=== PATIENT | male | born 1990 | race Caucasian/White ===

== ENCOUNTER 2021-04-05 13:35 | Outpatient (CLI) | payer MEDICAID | END 2021-04-05 13:36 | disposition critical access hospital (66) | LOC: EMS 13:35 | DX: R40.4 Transient alteration of awareness (principal); R25.1 Tremor, unspecified | CPT/HCPCS: A0425; A0427; A0999 ==

== ENCOUNTER 2021-04-05 13:55 | Emergency (ER) | payer MEDICAID ==
[2021-04-05] MEDS ORDERED: SODIUM CHLORIDE 0.9% 1,000 ML IV STA (14:25)
[2021-04-05] MEDS ORDERED: ONDANSETRON 4 MG/2 ML VIAL IVP STA (14:25)
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
[2021-04-05 15:14] LABS: BASOPHILS % (AUTO) 0.3 %; EOSINOPHILS % (AUTO) 0.2 %; HCT - HEMATOCRIT 44.1 % (42.0-52.0); HGB - HEMOGLOBIN 14.7 g/dL (14.0-18.0); LYMPHOCYTES # (AUTO) 3.3 10^3/uL (1.5-3.5); LYMPHOCYTES % (AUTO) 35.7 %; MEAN CORPUSCULAR HEMOGLOBIN 30.2 pg (27.0-31.0); MEAN CORPUSCULAR HGB CONC 33.3 g/dL (32.0-36.0); MEAN CORPUSCULAR VOLUME 90.7 fL (80.0-94.0); MEAN PLATELET VOLUME 8.8 fL (7.4-11.4); MONOCYTES # (AUTO) 0.3 10^3/uL (0.0-1.0); MONOCYTES % (AUTO) 3.6 %; NEUTROPHILS # (AUTO) 5.5 10^3/uL (1.5-6.6); NEUTROPHILS % (AUTO) 59.9 %; PLT - PLATELET COUNT 407 10^3/uL (130-450); RED BLOOD COUNT 4.86 10^6/uL (4.70-6.10); RED CELL DISTRIBUTION WIDTH 13.5 % (12.0-15.0); WHITE BLOOD COUNT 9.2 x10^3/uL (4.8-10.8)
[2021-04-05 15:27] LABS: ALBUMIN 4.9 g/dL (3.2-5.5); ALBUMIN/GLOBULIN RATIO 1.6 (1.0-2.2); BILIRUBIN,TOTAL 0.4 mg/dL (0.2-1.0); CALCIUM 9.3 mg/dL (8.5-10.3); CREATININE 0.8 mg/dL (0.6-1.2); ETOH - ETHANOL 260.1 mg/dL; POTASSIUM 3.6 mmol/L (3.5-5.0); TOTAL PROTEIN 7.9 g/dL (6.7-8.2)
[2021-04-05 17:10] VITALS: BP 111/64
== END 2021-04-05 18:03 | disposition home or self-care (01) ==
LOC: ED 13:55
DX: F10.129 Alcohol abuse with intoxication, unspecified (principal); Y90.8 Blood alcohol level of 240 mg/100 ml or more; R56.9 Unspecified convulsions
CPT/HCPCS: 36415; 80053; 80320; 83690; 85025; 96361; 96374; 99284

== ENCOUNTER 2021-04-06 02:36 | Outpatient (CLI) | payer MEDICAID | END 2021-04-06 02:37 | disposition critical access hospital (66) | LOC: EMS 02:36 | DX: Z76.89 Persons encountering health services in other specified circumstances (principal); R44.8 Other symptoms and signs involving general sensations and perceptions | CPT/HCPCS: A0425; A0427; A0999 ==

== ENCOUNTER 2021-04-06 02:50 | Emergency (ER) | payer MEDICAID ==
[2021-04-06] MEDS ORDERED: LORazepam 2 MG/ML VIAL IVP STA ×2 (03:02→03:58)
[2021-04-06] MEDS ORDERED: FOLIC ACID INJ 1 MG, THIAMINE INJ 100 MG, MAGNESIUM SULFATE 2 GM, MULTIVITAMIN 10 ML in... IV STA ×5 (03:02)
--- NOTE | 2021-04-06 03:10 | ED Physician Documentation ---
History of Present Illness - Stated complaint Stated Complaint: ETOH, THINKS HE'S GOING TO HAVE A SEIZURE - Chief complaint Chief Complaint: General - History obtained from History obtained from: Patient, EMS - History of Present Illness Timing: Prior to arrival, Today - Additonal information Additional information: 31-year-old male with a history of PTSD and alcohol abuse tells me today that he has been drinking for the past 16 days. He indicates that he went to [facility] after being seen at [facility] yesterday and when he was at [facility] this morning when they noted seizure-like activity and sent him here to the emergency department for evaluation. Here in the emergency department his blood alcohol was 270, he was given a liter of saline and 4mg of zofran and he had resolution of his symptoms. He indicates that he has a feeling like he is going to have a seizure and he had someone call 911 for him. He lives in [facility], has a history of PTSD and he has a friend that He served in [facility] [facility] with who was part of his PTSD support group who has committed suicide. He states this is a reason for his slip again to binge drinking. He states that he last binged drank about 5 or 6 months ago had a similar problem with withdrawal at that time. On evaluation of his CANDELARIO form it appears the has significant alcohol problems with alcohol intoxication and abuse including emergency department visits and inpatient treatment. He has told Dr. Silva earlier today that he drinks beer and he tells me he has vodka and wiskey about 1/5 per day. He has multiple scripts for ativan on his CANDELARIO. He has been out of ativan and seeking detox from alcohol. He went back to [facility] Review of Systems Unable to obtain: Intoxicated Constitutional: denies: Fever Eyes: denies: Decreased vision Ears: denies: Ear pain Nose: denies: Congestion Cardiac: denies: Chest pain / pressure Respiratory: denies: Dyspnea, Cough GI: reports: Abdominal Pain, Nausea, Vomiting : denies: Dysuria, Frequency Skin: denies: Rash Musculoskeletal: reports: Pain with weight bearing, Other (generalized pain/pins and needles) Neurologic: reports: Seizure, Confused Psychiatric: reports: Depressed. denies: Suicidal PD PAST MEDICAL HISTORY - Present Medications Home Medications: Ambulatory Orders Medication Instructions Recorded Confirmed No Known Home Medications 04/06/21 04/06/21 - Allergies Allergies/Adverse Reactions: Allergies Allergy/AdvReac Type Severity Reaction Status Date / Time No Known Drug Allergies Allergy Verified 04/06/21 03:02 PD ED PE NORMAL - Vitals Vital signs reviewed: Yes - General General: Alert and oriented X 3, Well developed/nourished, Other (shaky appearing male with aob) - HEENT HEENT: Atraumatic, PERRL, EOMI - Neck Neck: Supple, no meningeal sign, No bony TTP - Cardiac Cardiac: No murmur, Other (tachy to110) - Respiratory Respiratory: No respiratory distress, Clear bilaterally - Abdomen Abdomen: Normal bowel sounds, Soft, Non tender, Non distended, No organomegaly - Back Back: No CVA TTP, No spinal TTP - Derm Derm: Normal color, Warm and dry, No rash - Extremities Extremities: No deformity, No edema - Neuro 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 ) Results - Vitals Vitals: Vital Signs - 24 hr 04/06/21 04/06/21 04/06/21 02:50 03:14 03:25 Temperature 37.1 C Heart Rate 117 H 111 H 116 H Respiratory 18 21 23 Rate Blood Pressure 160/87 H 139/76 H 139/76 H O2 Saturation 95 96 95 04/06/21 04/06/21 04/06/21 03:39 03:52 04:17 Temperature 36.4 C L 36.9 C Heart Rate 120 H 114 H 106 H Respiratory 20 21 19 Rate Blood Pressure 134/74 H 134/74 H 113/54 L O2 Saturation 96 95 94 04/06/21 04/06/21 04/06/21 04:30 05:34 06:00 Temperature Heart Rate 107 H 111 H 97 Respiratory 19 18 16 Rate Blood Pressure 118/55 L 124/70 125/56 L O2 Saturation 94 95 95 04/06/21 06:51 Temperature 36.3 C L Heart Rate 92 Respiratory 15 Rate Blood Pressure 124/61 O2 Saturation 95 Oxygen O2 Source Room air - Labs Labs: Laboratory Tests 04/06/21 04/06/21 04/06/21 03:08 03:08 03:18 WBC 9.3 RBC 4.45 L Hgb 13.6 L Hct 40.7 L MCV 91.5 MCH 30.6 MCHC 33.4 RDW 13.7 Plt Count 390 MPV 8.8 Neut # (Auto) 4.1 Lymph # (Auto) 4.5 H [place] # (Auto) 0.5 Eos # (Auto) 0.2 Baso # (Auto) 0.1 Absolute Nucleated RBC 0.00 Nucleated RBC % 0.0 Sodium 145 Potassium 3.9 Chloride 103 Carbon Dioxide 27 Anion Gap 15.0 H BUN 16 Creatinine 1.0 Estimated GFR (MDRD) 87 L Glucose 102 H Calcium 8.7 Total Bilirubin 0.4 AST 27 ALT 21 Alkaline Phosphatase 64 Total Protein 7.3 Albumin 4.4 Globulin 2.9 Albumin/Globulin Ratio 1.5 Lipase 32 Urine Color YELLOW Urine Clarity CLEAR Urine pH 5.5 Ur Specific Dwight >=1.030 H Urine Protein NEGATIVE Urine Glucose (UA) NEGATIVE Urine Ketones NEGATIVE Urine Occult Blood NEGATIVE Urine Nitrite NEGATIVE Urine Bilirubin NEGATIVE Urine Urobilinogen 0.2 (NORMAL) Ur Leukocyte Esterase NEGATIVE Ur Microscopic Review NOT INDICATED Urine Culture Comments NOT INDICATED Urine Opiates Screen Ur Oxycodone Screen Urine Methadone Screen Ur Propoxyphene Screen Ur Barbiturates Screen Ur Tricyclics Screen Ur Phencyclidine Scrn Ur Amphetamine Screen U Methamphetamines Scrn U Benzodiazepines Scrn Urine Cocaine Screen U Cannabinoids Screen Ethyl Alcohol 223.2 04/06/21 03:18 WBC RBC Hgb Hct MCV MCH MCHC RDW Plt Count MPV Neut # (Auto) Lymph # (Auto) [place] # (Auto) Eos # (Auto) Baso # (Auto) Absolute Nucleated RBC Nucleated RBC % Sodium Potassium Chloride Carbon Dioxide Anion Gap BUN Creatinine Estimated GFR (MDRD) Glucose Calcium Total Bilirubin AST ALT Alkaline Phosphatase Total Protein Albumin Globulin Albumin/Globulin Ratio Lipase Urine Color Urine Clarity Urine pH Ur Specific [place] Urine Protein Urine Glucose (UA) Urine Ketones Urine Occult Blood Urine Nitrite Urine Bilirubin Urine Urobilinogen Ur Leukocyte Esterase Ur Microscopic Review Urine Culture Comments Urine Opiates Screen NEGATIVE Ur Oxycodone Screen NEGATIVE Urine Methadone Screen NEGATIVE Ur Propoxyphene Screen NEGATIVE Ur Barbiturates Screen NEGATIVE Ur Tricyclics Screen NEGATIVE Ur Phencyclidine Scrn NEGATIVE Ur Amphetamine Screen NEGATIVE U Methamphetamines Scrn NEGATIVE U Benzodiazepines Scrn POSITIVE H Urine Cocaine Screen NEGATIVE U Cannabinoids Screen NEGATIVE Ethyl Alcohol PD MEDICAL DECISION MAKING - ED course Complexity details: reviewed old records, reviewed results, re-evaluated patient, considered differential, d/w patient ED course: 31-year-old male with a history of PTSD and alcohol abuse presents to the emergency department intoxicated complaining of alcohol withdrawal. He is quite shaky. He requires 2 mg of Ativan and this does not entirely resolve his symptoms and he asked for more. He was administered a banana bag and 10 mg of dexamethasone. He requested medicine for pain and I denied this to him. I was able to review records from a recent hospitalization at [facility] and the indication there is long-term problems with binge drinking and benzodiazepines. The patient's father had requested detainment under Moody's law. The patient is voluntary here today. I am uncertain what we would treat here in the emergency department or in the hospital as a patient is intoxicated and thinks he is having alcohol withdrawal. My concern is for benzodiazepine withdrawal and I am uncertain that hospitalization here would be of benefit. After review of the patient's record from [facility] it appears there is concern to evoke Moody's law. I have asked our social work job titles to consider a dual diagnosis bed and at shift change his care is turned over to Dr. Vance. Departure - Departure Clinical Impression: Alcohol abuse, PTSD (post-traumatic stress disorder) Acute alcohol intoxication Qualifiers: Complication of substance-induced condition: with unspecified complication Qualified Code(s): F10.929 - Alcohol use, unspecified with intoxication, unspecified
[2021-04-06 03:14] LABS: BASOPHILS # (AUTO) 0.1 10^3/uL (0.0-0.1); BASOPHILS % (AUTO) 0.5 %; EOSINOPHILS # (AUTO) 0.2 10^3/uL (0.0-0.7); EOSINOPHILS % (AUTO) 1.7 %; HCT - HEMATOCRIT 40.7 % (42.0-52.0); HGB - HEMOGLOBIN 13.6 g/dL (14.0-18.0); LYMPHOCYTES # (AUTO) 4.5 10^3/uL (1.5-3.5); LYMPHOCYTES % (AUTO) 48.4 %; MEAN CORPUSCULAR HEMOGLOBIN 30.6 pg (27.0-31.0); MEAN CORPUSCULAR HGB CONC 33.4 g/dL (32.0-36.0); MEAN CORPUSCULAR VOLUME 91.5 fL (80.0-94.0); MEAN PLATELET VOLUME 8.8 fL (7.4-11.4); MONOCYTES # (AUTO) 0.5 10^3/uL (0.0-1.0); MONOCYTES % (AUTO) 4.8 %; NEUTROPHILS # (AUTO) 4.1 10^3/uL (1.5-6.6); NEUTROPHILS % (AUTO) 44.3 %; PLT - PLATELET COUNT 390 10^3/uL (130-450); RED BLOOD COUNT 4.45 10^6/uL (4.70-6.10); RED CELL DISTRIBUTION WIDTH 13.7 % (12.0-15.0); WHITE BLOOD COUNT 9.3 x10^3/uL (4.8-10.8)
[2021-04-06] MEDS ORDERED: MAGNESIUM SULFATE 1 GM/2 ML VIAL ONE (03:14)
[2021-04-06] MEDS ORDERED: THIAMINE 100 MG/1 ML 2 ML MDV ONE (03:14)
[2021-04-06 03:24] LABS: BILIRUBIN,URINE NEGATIVE (NEGATIVE); GLUCOSE, URINE (UA) NEGATIVE (NEGATIVE); KETONES,URINE (UA) NEGATIVE (NEGATIVE); LEUKOCYTE ESTERASE, URINE NEGATIVE (NEGATIVE); NITRITE,URINE NEGATIVE (NEGATIVE); OCCULT BLOOD,URINE NEGATIVE (NEGATIVE); PH,URINE 5.5 PH (5.0-7.5); PROTEIN,URINE NEGATIVE (NEGATIVE); UROBILINOGEN,URINE 0.2 (NORMAL) E.U./dL (NORMAL)
[2021-04-06 03:25] LABS: CLARITY,URINE CLEAR (CLEAR)
[2021-04-06 03:29] LABS: ALBUMIN 4.4 g/dL (3.2-5.5); ALBUMIN/GLOBULIN RATIO 1.5 (1.0-2.2); BILIRUBIN,TOTAL 0.4 mg/dL (0.2-1.0); CALCIUM 8.7 mg/dL (8.5-10.3); POTASSIUM 3.9 mmol/L (3.5-5.0); TOTAL PROTEIN 7.3 g/dL (6.7-8.2)
[2021-04-06 03:30] LABS: ETOH - ETHANOL 223.2 mg/dL
[2021-04-06] MEDS ORDERED: DEXAMETHASONE 10 MG/ML VIAL IVP STA (03:32)
[2021-04-06 03:48] LABS: MUDS CUTOFF CONCENTRATIONS CUTOFF CONC BELOW:
[2021-04-06 04:13] LABS: AMPHETAMINE SCREEN,URINE NEGATIVE (NEGATIVE); BARBITURATE SCREEN,UR NEGATIVE (NEGATIVE); BENZODIAZEPINES SCREEN, URINE POSITIVE (NEGATIVE); COCAINE SCREEN URINE NEGATIVE (NEGATIVE); METHADONE SCREEN, URINE NEGATIVE (NEGATIVE); METHAMPHETAMINES SCREEN, URINE NEGATIVE (NEGATIVE); OPIATE SCREEN, URINE NEGATIVE (NEGATIVE); OXYCODONE SCREEN, URINE NEGATIVE (NEGATIVE); PROPOXYPHENE SCREEN, URINE NEGATIVE (NEGATIVE); THC CANNABINOID SCREEN, URINE NEGATIVE (NEGATIVE); TRICYCLIC ANTIDEPRESSANT,URINE NEGATIVE (NEGATIVE)
[2021-04-06] MEDS ORDERED: LORazepam 1 MG TABLET PO STA (09:14)
[2021-04-06 09:31] VITALS: BP 141/84
[2021-04-06 10:04] LABS: B. PARAPERTUSSIS- RESP PCR PAN NOT DETECTED; B. PERTUSSIS- RESP PCR PANEL NOT DETECTED; C. PNEUMONIAE- RESP PCR PANEL NOT DETECTED; CORONAVIRUS 229E-RESP PCR NOT DETECTED; CORONAVIRUS HKU1-RESP PCR NOT DETECTED; CORONAVIRUS NL63-RESP PCR NOT DETECTED; CORONAVIRUS OC43-RESP PCR NOT DETECTED; HUMAN METAPNEUMOVIRUS NOT DETECTED; INFLUENZA A- RESP PCR PANEL NOT DETECTED; INFLUENZA B - RESP PCR PANEL NOT DETECTED; M. PNEUMONIAE- RESP PCR PANEL NOT DETECTED; PARAINFLUENZA VIRUS 1 NOT DETECTED; PARAINFLUENZA VIRUS 2 NOT DETECTED; PARAINFLUENZA VIRUS 3 NOT DETECTED; PARAINFLUENZA VIRUS 4 NOT DETECTED; RHINOVIRUS/ENTEROVIRUS NOT DETECTED; RSV- RESP PCR PANEL NOT DETECTED; SARS-CoV-2 -RESP PCR PANEL NOT DETECTED
== END 2021-04-06 10:37 | disposition home or self-care (01) ==
LOC: EDUNIT# → ED 02:50
DX: F10.129 Alcohol abuse with intoxication, unspecified (principal); F43.10 Post-traumatic stress disorder, unspecified; Z20.822 Contact with and (suspected) exposure to COVID-19
CPT/HCPCS: 0202U; 36415; 80053; 80306; 80320; 81003; 83690; 85025; 96365; 96375; 96376; 99284; J2060; J3411; J8499; 81001; 87086